=== PATIENT | male | born 1980 | race African-American/Black ===

== ENCOUNTER 2019-03-23 22:38 | Emergency (ER) | payer SELFPAY ==
[~2019-03-23] VITALS: Ht 175.3 cm; Wt 104.3 kg
[2019-03-23] MEDS ORDERED: AZITHROMYCIN 250 MG TAB PO STA (23:10)
[2019-03-23] MEDS ORDERED: CEFTRIAXONE SOD 1 GRAM/0.9% SOD CHL 50ML BAG IV STA (23:10)
[2019-03-23] MEDS ORDERED: CEFTRIAXONE SOD 1 GM VIAL ONE (23:21)
[2019-03-23] MEDS ORDERED: AZITHROMYCIN 250 MG TAB ONE (23:21)
[2019-03-23] MEDS ORDERED: LIDOCAINE HCL 1% LOCAL INJ 20 ML VIAL ONE (23:22)
[2019-03-23 23:48] VITALS: BP 132/85
== END 2019-03-23 23:54 | disposition home or self-care (01) ==
LOC: FSED 22:38
DX: R30.0 Dysuria (principal); A54.01 Gonococcal cystitis and urethritis, unspecified; A56.01 Chlamydial cystitis and urethritis
CPT/HCPCS: 81003; 87800; 99283; J0696; J2001